=== PATIENT | female | born 1950 | race Caucasian/White ===

== ENCOUNTER 2017-04-09 10:54 | Day surgery (SDC) | payer MEDICARE ==
[~2017-04-09] VITALS: Ht 149.9 cm; Wt 72.6 kg
--- NOTE | ~2017-04-09 | EGD ---
EGD REPORT [facility] [address] [place] [id number] NAME: BULMARO SOTELO : [birth year] STATUS : REG [facility]#: [id number] AGE: 67 ADM/REG DATE : 04/09/17 MR#: [id number] REPORT SERV DATE: 04/09/17 DICTATED BY: ESTELLE BEAL DATE: 04/09/17 REPORT STATUS : Draft TRANSCRIBED BY: [facility] DATE: 04/09/17 Endoscopy Center Patient Name: Bulmaro Sotelo Date of : 1950 Attending MD: ESTELLE BEAL MD Procedure Date No Time: 04/09/2017 Procedure: Colonoscopy Indications: Screening for colorectal malignant neoplasm Referring MD: SUSHILA THOMAS Medicines: Propofol per Anesthesia Complications: No immediate complications. Procedure: Pre-Anesthesia Assessment: - ASA Grade Assessment: III - A patient with severe systemic disease. After I obtained informed consent, the scope was passed under direct vision. Throughout the procedure, the patient's blood pressure, pulse, and oxygen saturations were monitored continuously. The CF [id number] was introduced through the anus and advanced to the cecum, identified by appendiceal orifice and ileocecal valve. The colonoscopy was performed without difficulty. The patient tolerated the procedure well. The quality of the bowel preparation was good. The ileocecal valve, appendiceal orifice and rectum were photographed. Findings: The perianal and digital rectal examinations were normal. The colon (entire examined portion) appeared normal. A sessile polyp was found in the ascending colon. The polyp was 4 mm in size. The polyp was removed with a cold snare. Resection and retrieval were complete. A sessile polyp was found in the transverse colon. The polyp was 4 mm in size. The polyp was removed with a cold snare. Resection and retrieval were complete. A sessile polyp was found in the descending colon. The polyp was 3 mm in size. The polyp was removed with a cold snare. Resection and retrieval were complete. Non-bleeding internal hemorrhoids were found during retroflexion and were mild, medium-sized and Grade I (internal hemorrhoids that do not prolapse). Impression: - The entire examined colon is normal. - One 4 mm polyp in the ascending colon. Resected and retrieved. - One 4 mm polyp in the transverse colon. Resected and EGD REPORT [place] [id number] [facility] [place]. [address] NAME: BULMARO SOTELO : [birth year] STATUS : REG [facility]#: [id number] AGE: 67 ADM/REG DATE : 04/09/17 MR#: [id number] REPORT SERV DATE: 04/09/17 DICTATED BY: ESTELLE BEAL DATE: 04/09/17 REPORT STATUS : Draft TRANSCRIBED BY: [employer] DATE: 04/09/17 retrieved. - One 3 mm polyp in the descending colon. Resected and retrieved. - Non-bleeding internal hemorrhoids. Recommendation: - Patient has a contact number available for emergencies. The signs and symptoms of potential delayed complications were discussed with the patient. Return to normal activities tomorrow. Written discharge instructions were provided to the patient. - Return to previous diet. - Continue present medications. - Repeat colonoscopy in 3 - 5 years for surveillance based on pathology results. - Return to my office as previously scheduled. - Discharge patient to home. Procedure Code(s): --- Professional --- 27942, Colonoscopy, flexible, proximal to splenic flexure; with removal of tumor(s), polyp(s), or other lesion(s) by snare technique Diagnosis Code(s): --- Professional --- K64.0, First degree hemorrhoids D12.4, Benign neoplasm of descending colon D12.3, Benign neoplasm of transverse colon D12.2, Benign neoplasm of ascending colon Z12.11, Encounter for screening for malignant neoplasm of colon CPT copyright 2013 [employer]. All rights reserved. The codes documented in this report are preliminary and upon foot caster review may be revised to meet current compliance requirements. Estelle Beal MD ESTELLE BEAL MD 04/09/2017 4:56 PM This report has been signed electronically. Number of Addenda: 0 Note Initiated On: 04/09/2017 3:22 PM Scope Withdrawal Time 0 hours 39 minutes 32 seconds [id number] [id number]
[~2017-04-09 10:54] MED LIST: ACCUNEB INH; ALBUTEROL0.63 MG/3 INH; DULERA 100 MCG/13 GM INH; GLUCPH PO; HYDROCHLOROT12.5 MG PO; LOP25 PO; SINGULAIR1 PO; SPIRIVA INH; SYMBICORT 80/4.1 INH INH; VENTOLIN HFA INH; ZYRTEC ALLGY10 MG PO
== END 2017-04-09 23:59 | disposition home or self-care (01) ==
LOC: DMU 10:54
PROVIDERS: Internal Medicine Gastroenterology
PROC: 0DBL8ZX Excision of Transverse Colon, Via Natural or Artificial Opening Endoscopic, Diagnostic (ICD-10-PCS; 2017-04-09)
PROC: 0DBM8ZX Excision of Descending Colon, Via Natural or Artificial Opening Endoscopic, Diagnostic (ICD-10-PCS; 2017-04-09)
PROC: 0DBK8ZX Excision of Ascending Colon, Via Natural or Artificial Opening Endoscopic, Diagnostic (ICD-10-PCS; principal; 2017-04-09 11:00)
DX: Z12.11 Encounter for screening for malignant neoplasm of colon (principal); D12.2 Benign neoplasm of ascending colon; D12.3 Benign neoplasm of transverse colon; D12.4 Benign neoplasm of descending colon; K64.0 First degree hemorrhoids; I10 Essential (primary) hypertension; E11.9 Type 2 diabetes mellitus without complications; J44.9 Chronic obstructive pulmonary disease, unspecified; G47.33 Obstructive sleep apnea (adult) (pediatric); Z88.5 Allergy status to narcotic agent; Z91.041 Radiographic dye allergy status; Z79.899 Other long term (current) drug therapy; Z91.012 Allergy to eggs; Z88.8 Allergy status to other drugs, medicaments and biological substances; Z87.891 Personal history of nicotine dependence; Z90.710 Acquired absence of both cervix and uterus; Z98.890 Other specified postprocedural states
CPT/HCPCS: 82962; 88305